=== PATIENT | male | born 1980 | race Two or more races ===

== ENCOUNTER 2017-03-16 22:34 | Emergency (ER) | payer OTHER ==
[~2017-03-16] VITALS: Ht 190.5 cm; Wt 77.1 kg
[~2017-03-16 22:34] MED LIST: /ACETCOD2T PO; /PREG50CA PO; BACL10TA2 PO; GABA-283 PO; MELO15TA4 PO; PERC4TAB PO; ROBA750T4 PO; TIZA4CAP PO; TIZA4CAP3 PO; TYLENOL PO; VALI5TAB PO; VOLT1GEL2 TD
[2017-03-16] MEDS ORDERED: CYCL10TA PO (22:58)
[2017-03-16] MEDS ORDERED: CELE-19 PO (22:58)
[2017-03-16] MEDS ORDERED: VICO5TAB16 PO (22:58)
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
[2017-03-16] MEDS ORDERED: MORPHINE 4 MG/ML 1ML SYRINGE IV PRN (23:30)
[2017-03-16] MEDS ORDERED: NS 1,000 ML IV ONE (23:30)
[2017-03-16] MEDS ORDERED: ONDANSETRON 4MG/2ML VIAL (J2405) IV ONE (23:30)
[2017-03-17] MEDS ORDERED: KETOROLAC 30 MG/ML VIAL (J1885) IV ONE (00:30)
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
--- NOTE | 2017-03-17 01:10 | REPUSA ---
CLINICAL HISTORY: Back pain. TECHNIQUE: Multiple axial images were obtained through the L1-L2, L2-L3, L3-L4, L4-L5 and L5-S1 inter spaces. Images were also reconstructed in coronal and sagittal planes. COMMENTS: There is no fracture visualized. The paraspinal soft tissues are unremarkable. There are no lytic or blastic lesions. Straightening of lumbar lordosis is seen, suggesting muscular spasm. There is evidence of multilevel disk disease, demonstrated by osteophytosis ad endplate sclerosis. Evaluation of individual levels reveals the following: At L3-L4, L4-L5 and L5-S1, broad-based disk protrusion in conjunction with hypertrophic facet disease results in moderate bilateral foraminal narrowing. Canal is mildly stenotic. At L1-L2, L2-L3 levels broad-based disk bulge, results in mild bilateral foraminal narrowing. Canal i s patent. IMPRESSION: 1. No fracture or spondylolisthesis. 2. Straightening of lumbar lordosis is seen, suggesting muscular spasm. 3. Spondylosis. Thank you for your kind referral of this patient.
[2017-03-17 02:15] VITALS: BP 126/82
== END 2017-03-17 03:18 | disposition home or self-care (01) ==
LOC: EDBD 22:34 → M ED 03-17 03:05
DX: S06.0X0A Concussion without loss of consciousness, initial encounter (principal); M62.838 Other muscle spasm; W22.8XXA Striking against or struck by other objects, initial encounter; Y92.016 Swimming-pool in single-family (private) house or garden as the place of occurrence of the external cause; Y93.15 Activity, underwater diving and snorkeling; Y99.9 Unspecified external cause status; M47.896 Other spondylosis, lumbar region; Z79.899 Other long term (current) drug therapy

== ENCOUNTER → 2017-04-05 | Outpatient (CLI) | payer OTHER ==
[~2017-04-05] MED LIST changes: +CELE-19 PO; +CYCL10TA PO; +VICO5TAB16 PO
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
--- NOTE | 2017-04-06 12:11 | REP ---
LEFT HAND SERIES, COMPLETE: 04/05/2017. Clinical history: Swelling, painful digit. Comparison left wrist: 09/27/2008. Findings: Four views are provided. Some narrowing and spurring at the PIP joint of the fifth digit with soft tissue swelling around those marginal osteophytes. This may be post-traumatic. There is no definite acute fracture. IP joint of the thumb shows minor degenerative change, other IP joints are intact. Carpal bones and articulations are intact. Distal radius and ulna unremarkable. Impression: 1. Marginal osteophytes at the PIP joint 5th digit which may be posttraumatic. There is swelling around this digit at that PIP joint. No acute fracture or destructive lesion. Signed by Rick Ferguson MD 04/06/2017 09:33 A
== END ==
LOC: M LRY 16:28
PROVIDERS: ATTEND Physician Assistant
DX: S99.912A Unspecified injury of left ankle, initial encounter (principal); M25.442 Effusion, left hand; X58.XXXA Exposure to other specified factors, initial encounter; Y92.9 Unspecified place or not applicable

== ENCOUNTER → 2018-11-04 | Outpatient (REF) | payer OTHER ==
[~2018-11-04] MED LIST changes: -CELE-19 PO; +CELE1CAP4 PO; -GABA-283 PO; +GABA-845 PO; +MELO15TA28 PO; -MELO15TA4 PO; -TIZA4CAP3 PO
== END ==
LOC: M LAB REF 17:55
PROVIDERS: ATTEND Orthopaedic Surgery
DX: M77.12 Lateral epicondylitis, left elbow (principal)

== ENCOUNTER → 2019-06-16 | Outpatient (CLI) | payer OTHER ==
[~2019-06-16] MED LIST changes: -/ACETCOD2T PO; -/PREG50CA PO; +ACET1TAB15 PO; +LYRI50CA PO; -PERC4TAB PO; +PERCOCET PO; -VICO5TAB16 PO; +VICO5TAB17 PO
--- NOTE | 2019-06-16 09:59 | REP ---
MRI RIGHT SHOULDER: TECHNIQUE: Axial T2 fat sat, gradient echo, sagittal oblique T2 fat sat, coronal oblique T1, T2 fat sat. There is ill-defined high signal on T2-weighted images involving the supraspinatus tendon diffusely compatible with tendinopathy/tendonitis. There may be some fraying along the bursal surface of the tendon. Otherwise no rotator cuff tear is seen. There are moderate hypertrophic degenerative changes of the acromioclavicular joint with a tiny amount of fluid in the joint. There is subchondral marrow edema in the acromion and distal clavicle. Mild increased signal on T2-weighted images involves the acromioclavicular ligament possibly indicating a sprain. The coracoclavicular is intact. Acromion is downward sloping and type II. The biceps tendon is within the bicipital groove with no tendosynovitis. There is no Hill-Sachs deformity. The deltoid muscle demonstrates no abnormal signal. Biceps labral complex is intact. No labral tear or paralabral cyst is seen. Subchondral cystic changes are seen in the humeral head. No joint effusion is seen. IMPRESSION: Moderate hypertrophic degenerative changes acromioclavicular joint with a tiny amount of fluid in the joint. There is marrow edema in the distal clavicle and in the acromion. This could be due to bone bruising or it could be secondary to arthritic changes at the acromioclavicular joint. There is ill-defined high signal on T2-weighted images involving the acromioclavicular ligament which may indicate a sprain. There is no malalignment or widening of the acromioclavicular joint. Mild supraspinatus tendinopathy/tendonitis with possible fraying along the bursal surface. Acromion is downward sloping and type II. Subchondral cystic changes humeral head. Electronically Signed by Dany Giraldo MD 06/16/2019 11:24 A
== END ==
LOC: M RAD 08:07
PROVIDERS: ATTEND Physician Assistant
DX: S43.101D Unspecified dislocation of right acromioclavicular joint, subsequent encounter (principal)

== ENCOUNTER → 2019-06-20 | Outpatient (CLI) | payer OTHER ==
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
== END ==
LOC: M LRY 16:27
PROVIDERS: ATTEND Physician Assistant
DX: S69.91XA Unspecified injury of right wrist, hand and finger(s), initial encounter (principal); X58.XXXA Exposure to other specified factors, initial encounter; Y92.89 Other specified places as the place of occurrence of the external cause

== ENCOUNTER 2021-07-06 22:36 | Inpatient (IN) | payer OTHER ==
[~2021-07-06] VITALS: Ht 182.9 cm; Wt 68.7 kg
[~2021-07-06 22:36] MED LIST changes: +CYCL-707 PO; -CYCL10TA PO; +GABA-283 PO; -GABA-845 PO
[2021-07-06] MEDS ORDERED: HALOPERIDOL 5MG/ML VIAL (J1630 PER 1) IM ONE (23:20)
[2021-07-06] MEDS ORDERED: NS 1,000 ML IV ONE (23:20)
[2021-07-06] MEDS ORDERED: LORazepam 2 MG/ML VIAL IM ONE (23:20)
[2021-07-06] MEDS ORDERED: diphenhydrAMINE 50MG/ML VIAL (J1200) IM ONE (23:20)
[2021-07-06 23:55] LABS: BASO # 0.1 10^3/uL (0.0-0.2); BASO % 0.7 % (0.0-1.0); EOS # 0.3 10^3/uL (0.0-0.5); EOS % 2.5 % (0.0-3.0); HEMATOCRIT 44.4 % (42.0-52.0); HEMOGLOBIN 15.3 g/dl (13.5-17.5); LYMPH # 3.6 10^3/uL (1.5-5.0); LYMPH % 32.6 % (24.0-44.0); MEAN CORPUSCULAR HGB CONC 34.5 g/dl (32.0-36.5); MEAN CORPUSCULAR VOLUME 95.7 fl (80.0-96.0); MONO # 0.6 10^3/uL (0.0-0.8); MONO % 5.3 % (2.0-8.0); NEUTROPHILS # 6.5 10^3/uL (1.5-8.5); NEUTROPHILS % 58.6 % (36.0-66.0); PLATELET COUNT, AUTOMATED 215 10^3/uL (150-450); RED BLOOD COUNT 4.64 10^6/uL (4.30-6.10)
[2021-07-07] VITALS (16 sets, daily range): BP systolic 106–148; BP diastolic 70–99; O2SAT 95
[2021-07-07 00:14] LABS: AMPHETAMINES LEVEL URINE NEGATIVE (NEGATIVE); BARBITURATES URINE NEGATIVE (NEGATIVE); BENZODIAZEPINES URINE NEGATIVE (NEGATIVE); CANNABINOIDS URINE NEGATIVE (NEGATIVE); COCAINE METABOLITE URINE NEGATIVE (NEGATIVE); METHADONE URINE NEGATIVE (NEGATIVE); OPIATES URINE NEGATIVE (NEGATIVE); PHENCYCLIDINE URINE NEGATIVE (NEGATIVE)
[2021-07-07 00:26] LABS: ACETAMINOPHEN LEVEL < 2.0 UG/ML (10.0-30.0); ALBUMIN 4.3 GM/DL (3.2-5.2); ALT/SGPT 19 U/L (12-78); BILIRUBIN,DIRECT < 0.1 MG/DL (0.0-0.2); BILIRUBIN,TOTAL 0.3 MG/DL (0.2-1.0); BLOOD UREA NITROGEN 10 MG/DL (7-18); CALCIUM LEVEL 9.1 MG/DL (8.5-10.1); CARBON DIOXIDE LEVEL 28 MEQ/L (21-32); CHLORIDE LEVEL 107 MEQ/L (98-107); CPK CREATINE PHOSPHOKINASE 300 U/L (39-308); CREATININE FOR GFR 1.01 MG/DL (0.70-1.30); ETHYL ALCOHOL (ETHANOL) 0.312 % (0.000-0.010); GLOMERULAR FILTRATION RATE > 60.0 (>60); GLUCOSE, FASTING 116 MG/DL (70-100); POTASSIUM SERUM 4.1 MEQ/L (3.5-5.1); SALICYLATE LEVEL 2.2 MG/DL (5.0-30.0); SODIUM LEVEL 142 MEQ/L (136-145); THYROID STIMULATING HORMONE 0.694 uIU/ML (0.358-3.740); TOTAL PROTEIN 7.4 GM/DL (6.4-8.2)
[2021-07-07] MEDS ORDERED: LORazepam 2 MG/ML VIAL IV STA (00:28)
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
[2021-07-07] MEDS ORDERED: ETOMIDATE INJ 20MG/10ML VIAL IV STA (02:59)
[2021-07-07] MEDS ORDERED: ROCURONIUM BROMIDE 50 MG/5 ML VIAL IV ONE (03:00)
[2021-07-07] MEDS ORDERED: AMLO1TAB24 PO (03:07)
[2021-07-07] MEDS ORDERED: propofoL 1,000 MG in IV 1 EA IV SCH (03:10)
--- NOTE | 2021-07-07 04:08 | REPVR ---
PROCEDURE INFORMATION: Exam: XR Chest Exam date and time: 07/07/2021 3:52 AM Age: 40 years old Clinical indication: Device placement; Ett placement (vent status); Additional info: Post intubation TECHNIQUE: Imaging protocol: XR of the chest. Views: 1 view. COMPARISON: CR Chest, 1 view 07/07/2021 12:00 AM FINDINGS: Tubes, catheters and devices: There is an enteric tube coursing below the diaphragm into the stomach, but the tip of the tube was not included in the field of the image. An endotracheal tube is seen overlying the trachea, and the tip terminates 5.4 cm above the db. Lungs: Unremarkable. No consolidation. No pulmonary edema. Pleural spaces: Unremarkable. No pleural effusion. No pneumothorax. Heart/Mediastinum: Unremarkable. No cardiomegaly. Bones/joints: Postoperative changes are noted from an excision of the distal end of the right clavicle and there is postoperative widening of the right acromioclavicular joint space. IMPRESSION: 1. Endotracheal tube in the trachea terminating 5.4 cm above the db. 2. Enteric tube seen in the stomach, but the tip of the tube was not included in the field of the image. Electronically signed by: Austin Saavedra On 07/07/2021 04:07:50 AM
[2021-07-07] MEDS: D5W/0.45% SODIUM CHLORIDE 1,000 ML IV SCH ×2 (04:20→10:02)
[2021-07-07] MEDS ORDERED: med rec comment (04:24)
[2021-07-07] MEDS ORDERED: HOME MED LIST COMPLETE! XX SCH (04:25)
[2021-07-07] MEDS: propofoL 1,000 MG in IV 1 EA IV SCH ×5 (04:35→21:18)
[2021-07-07 05:01] LABS: RSV AMPLIFICATION NEGATIVE (NEGATIVE)
[2021-07-07] MEDS: MIDAZOLAM INJ 2MG/2ML VIAL (J2250 PER 1MG) IV PRN ×10 (06:17→20:19)
[2021-07-07] MEDS: HEPARIN SOD (PORCINE) 5000UNITS/ML 1ML VIAL/SYRINGE SC SCH ×3 (06:23→21:19)
[2021-07-07 07:27] LABS: ALBUMIN 3.5 GM/DL (3.2-5.2); ALT/SGPT 16 U/L (12-78); BILIRUBIN,TOTAL 0.4 MG/DL (0.2-1.0); BLOOD UREA NITROGEN 9 MG/DL (7-18); CALCIUM LEVEL 8.1 MG/DL (8.5-10.1); CARBON DIOXIDE LEVEL 25 MEQ/L (21-32); CHLORIDE LEVEL 113 MEQ/L (98-107); CHOLESTEROL LEVEL 151 MG/DL (< 200); CPK CREATINE PHOSPHOKINASE 754 U/L (39-308); CREATININE FOR GFR 0.88 MG/DL (0.70-1.30); GLOMERULAR FILTRATION RATE > 60.0 (>60); GLUCOSE, FASTING 110 MG/DL (70-100); LDH LACTATE DEHYDROGENASE 187 U/L (87-241); PHOSPHORUS LEVEL 2.7 MG/DL (2.5-4.9); POTASSIUM SERUM 3.8 MEQ/L (3.5-5.1); SODIUM LEVEL 145 MEQ/L (136-145); TOTAL PROTEIN 5.8 GM/DL (6.4-8.2); TRIGLYCERIDES LEVEL 194 MG/DL (<150)
[2021-07-07] MEDS: IPRATROPIUM 0.5MG/ALBUTEROL 2.5MG INH SOL UD 3ML (DUONEB) NEB SCH ×5 (07:52→23:40)
[2021-07-07] MEDS: CHLORHEXIDINE GLUCONATE 0.12 % 15ML UDC (PERIDEX ORAL RINSE) MT SCH ×2 (08:11→20:10)
[2021-07-07] MEDS: PANTOPRAZOLE 40MG VIAL (C9113 PER 1) IV SCH (08:11)
[2021-07-07 09:12] LABS: ABG BASE EXCESS 0.4 (-2.0-2.0); ABG HCO3 24.9 MEQ/L (22.0-26.0); ABG O2 SATURATION 98.9 % (95.0-99.0); ABG PARTIAL PRESSURE CO2 39.6 mmHg (35.0-45.0); ABG PARTIAL PRESSURE O2 137.1 mmHg (75.0-100.0); ABG STANDARD HCO3 24.9 MEQ/L (22.0-26.0); ABG TOTAL CO2 26.1 MEQ/L (22.0-29.0); ABG pH (ARTERIAL) 7.416 UNITS (7.350-7.450)
[2021-07-07] MEDS: KCL 20MEQ IN D5/0.45NS 1000ML 1,000 ML IV SCH ×2 (10:36→18:46)
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
[2021-07-07] MEDS: MORPHINE 2 MG/ML 1ML VIAL (J2270) IV PRN ×2 (17:57→21:26)
[2021-07-08] VITALS (15 sets, daily range): BP systolic 111–155; BP diastolic 69–99
[2021-07-08] MEDS: MIDAZOLAM INJ 2MG/2ML VIAL (J2250 PER 1MG) IV PRN ×3 (00:12→07:10)
[2021-07-08] MEDS: propofoL 1,000 MG in IV 1 EA IV SCH ×4 (00:12→07:55)
[2021-07-08] MEDS: KCL 20MEQ IN D5/0.45NS 1000ML 1,000 ML IV SCH ×2 (02:50→10:30)
[2021-07-08] MEDS: IPRATROPIUM 0.5MG/ALBUTEROL 2.5MG INH SOL UD 3ML (DUONEB) NEB SCH ×5 (04:05→20:22)
[2021-07-08] MEDS: HEPARIN SOD (PORCINE) 5000UNITS/ML 1ML VIAL/SYRINGE SC SCH ×3 (05:07→21:04)
[2021-07-08 05:27] LABS: ALBUMIN 3.2 GM/DL (3.2-5.2); ALT/SGPT 16 U/L (12-78); BILIRUBIN,TOTAL 0.4 MG/DL (0.2-1.0); BLOOD UREA NITROGEN 7 MG/DL (7-18); CALCIUM LEVEL 8.1 MG/DL (8.5-10.1); CARBON DIOXIDE LEVEL 30 MEQ/L (21-32); CHLORIDE LEVEL 113 MEQ/L (98-107); CHOLESTEROL LEVEL 148 MG/DL (< 200); CPK CREATINE PHOSPHOKINASE 778 U/L (39-308); CREATININE FOR GFR 0.87 MG/DL (0.70-1.30); GLOMERULAR FILTRATION RATE > 60.0 (>60); GLUCOSE, FASTING 110 MG/DL (70-100); LDH LACTATE DEHYDROGENASE 211 U/L (87-241); PHOSPHORUS LEVEL 3.4 MG/DL (2.5-4.9); POTASSIUM SERUM 4.2 MEQ/L (3.5-5.1); SODIUM LEVEL 146 MEQ/L (136-145); TOTAL PROTEIN 5.5 GM/DL (6.4-8.2); TRIGLYCERIDES LEVEL 76 MG/DL (<150)
[2021-07-08 05:45] LABS: ABG BASE EXCESS 0.4 (-2.0-2.0); ABG HCO3 26.7 MEQ/L (22.0-26.0); ABG O2 SATURATION 99.1 % (95.0-99.0); ABG PARTIAL PRESSURE CO2 49.5 mmHg (35.0-45.0); ABG PARTIAL PRESSURE O2 170.3 mmHg (75.0-100.0); ABG STANDARD HCO3 24.9 MEQ/L (22.0-26.0); ABG TOTAL CO2 28.2 MEQ/L (22.0-29.0); ABG pH (ARTERIAL) 7.349 UNITS (7.350-7.450)
--- NOTE | 2021-07-08 05:49 | ECGEPIP ---
[facility] - ED Test Date: 2021-07-06 Pat Name: KIERRA STEWARD Department: Room: [place] [address] Gender: Male [employer] T[employer] Head: MANFRED : 1980 Requested By: PARESH [place] Order Number: [id number] Reading MD: Filiberto Barriga Measurements Intervals Venus Rate: 98 P: 63 NV: 154 QRS: 54 QRSD: 92 T: 55 QT: 356 QTc: 454 Interpretive Statements Normal sinus rhythm POOR R WAVE PROGRESSION NSTTW ABNORMALITY(S) NO PRIORS FOR COMPARISON Electronically Signed on 07-08-2021 5:49:25 EDT by Filiberto Barriga
--- NOTE | 2021-07-08 08:07 | REP ---
INDICATION: Resp failure COMPARISON: 07/07/2021 TECHNIQUE: Portable AP view of the chest FINDINGS: Endotracheal tube and nasogastric tube in stable satisfactory position. The mediastinum and cardiac silhouette are stable and within normal limits for portable technique. The lung flaherty are clear without acute consolidation, effusion, or pneumothorax. Skeletal structures are intact. IMPRESSION: No focal consolidation, effusion, or pneumothorax appreciated. <Electronically signed by Tavo Valderrama > 07/08/21 0858
[2021-07-08] MEDS: CHLORHEXIDINE GLUCONATE 0.12 % 15ML UDC (PERIDEX ORAL RINSE) MT SCH ×2 (08:54→20:16)
[2021-07-08] MEDS: PANTOPRAZOLE 40MG VIAL (C9113 PER 1) IV SCH (08:54)
--- NOTE | 2021-07-08 09:40 | CCN ---
CRITICAL CARE NOTE DATE: 07/08/2021 START TIME: 814 STOP TIME: 844 SUBJECTIVE: I again attended Kyle Bullard here in the Intensive Care Unit. Patient has been examined. Chart reviewed. I spoke at length with the nurse at the bedside. He is still on significant amounts of propofol, and this will be discontinued this morning. T-max overnight 98.3, blood pressure 110 to 150s, heart rate 50 to 70s with a sinus mechanism, respiratory rate 14 and occasionally does overbreathe the ventilator. Ins and outs midnight 3,358 mL in with 1,625 mL out. White blood cell count 11.0, hemoglobin 15.3, platelet count 215,000, 58% segs, no bands. Sodium 146, potassium 4.2, chloride 113, CO2 30, BUN 7, creatinine 0.87, glucose 110. CK mildly elevated at 778. Albumin acceptable at 3.2. Blood gas done this morning on an SIMV rate of 14, tidal volume 450, PEEP of 5, FiO2 of 30% has a pH of 7.349, pCO2 of 49.5, and pO2 of 170. Chest x-ray done this morning shows lines and tubes in good position. No acute findings. OBJECTIVE: GENERAL: On exam, he is sedate. HEENT: Pupils reactive. Sclera clear. Trachea is in the midline. CHEST: Clear to both auscultation and percussion. Expansion symmetric. No significant focal or adventitious breath sounds are identified. Tactile fremitus palpable throughout. CARDIAC: Regular with no gallop. Peripheral pulses palpable without edema. ABDOMEN: Soft, nontender with active bowel sounds. No convincing organomegaly or masses. EXTREMITIES: No cyanosis or clubbing. He does move all extremities when sedation is lightened. PSYCHIATRIC: Psychiatric exam currently shows him to be sedate. MOST PRESSING PROBLEMS REQUIRING MY PRESENCE AT THE BEDSIDE: 1. Respiratory failure secondary to alcohol intoxication. 2. Alcohol intoxication. ASSESSMENT/PLAN: At this point, we will discontinue his sedation. My hope is that we will be able to extubate him this morning. He has had some minimal electrolyte abnormalities, and I believe these will self correct when he is able to be extubated and eat. For now, we will continue ulcer and DVT prophylaxis. He remains on maintenance fluids. Will proceed as outlined above. Currently, there is no role for antimicrobials. Will proceed as outlined above. I left the bedside at 0845 hours. Thirty minutes of critical care time at the bedside not including procedures.
[2021-07-08] MEDS ORDERED: NORCO, ANEXSIA 5/325MG TABLET (HYDROcodone/ACETAMINOPHEN) PO PRN (10:50)
[2021-07-08] MEDS ORDERED: CHLORASEPTIC SPRAY MT PRN (10:50)
[2021-07-08] MEDS ORDERED: KETOROLAC 30 MG/ML 1ML VIAL IV PRN (10:50)
[2021-07-08] MEDS ORDERED: ACETAMINOPHEN TAB 650MG DOSE (2X325MG) PO PRN (10:50)
[2021-07-08] MEDS ORDERED: amLODIPine 5 MG TAB PO ONE (11:10)
[2021-07-08] MEDS: amLODIPine 5 MG TAB PO SCH (11:41)
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
[2021-07-08] MEDS: THIAMINE 100 MG TAB PO SCH (16:10)
[2021-07-08] MEDS: MULTIVITAMINS/MINERALS THERAP 1 TAB PO SCH (16:11)
[2021-07-08] MEDS: FOLIC ACID 1 MG TAB PO SCH (16:11)
[2021-07-09] MEDS: IPRATROPIUM 0.5MG/ALBUTEROL 2.5MG INH SOL UD 3ML (DUONEB) NEB SCH ×4 (03:02→12:00)
[2021-07-09] MEDS: HEPARIN SOD (PORCINE) 5000UNITS/ML 1ML VIAL/SYRINGE SC SCH (05:19)
[2021-07-09 06:00] VITALS: BP 126/81
[2021-07-09 07:13] LABS: ALBUMIN 3.4 GM/DL (3.2-5.2); ALT/SGPT 19 U/L (12-78); BILIRUBIN,TOTAL 1.1 MG/DL (0.2-1.0); BLOOD UREA NITROGEN 11 MG/DL (7-18); CALCIUM LEVEL 8.7 MG/DL (8.5-10.1); CARBON DIOXIDE LEVEL 28 MEQ/L (21-32); CHLORIDE LEVEL 110 MEQ/L (98-107); CHOLESTEROL LEVEL 153 MG/DL (< 200); CPK CREATINE PHOSPHOKINASE 1081 U/L (39-308); CREATININE FOR GFR 0.88 MG/DL (0.70-1.30); GLOMERULAR FILTRATION RATE > 60.0 (>60); GLUCOSE, FASTING 81 MG/DL (70-100); LDH LACTATE DEHYDROGENASE 213 U/L (87-241); PHOSPHORUS LEVEL 3.3 MG/DL (2.5-4.9); POTASSIUM SERUM 4.4 MEQ/L (3.5-5.1); SODIUM LEVEL 143 MEQ/L (136-145); TOTAL PROTEIN 5.7 GM/DL (6.4-8.2); TRIGLYCERIDES LEVEL 66 MG/DL (<150)
--- NOTE | 2021-07-09 07:51 | REP ---
INDICATION: Resp failure. COMPARISON: Comparison portable chest x-ray July 08, 2021. TECHNIQUE: Portable upright AP chest radiograph. FINDINGS: The lungs are well inflated and free of infiltrate. Pleural angles are sharp. Heart size is normal. Pulmonary vasculature is not increased. Nasogastric and endotracheal tubes have been removed in the interval since the prior study. IMPRESSION: No active disease. <Electronically signed by Jeromy Miranda > 07/09/21 0781
[2021-07-09] MEDS ORDERED: VITMTA PO (08:14)
[2021-07-09] MEDS ORDERED: FOLI1TAB11 PO (08:14)
[2021-07-09] MEDS ORDERED: THIA100TA PO (08:14)
[2021-07-09] MEDS ORDERED: MAPA500C PO (08:14)
[2021-07-09] MEDS: PANTOPRAZOLE 40MG VIAL (C9113 PER 1) IV SCH (08:54)
[2021-07-09] MEDS: FOLIC ACID 1 MG TAB PO SCH (08:54)
[2021-07-09] MEDS: MULTIVITAMINS/MINERALS THERAP 1 TAB PO SCH (08:54)
[2021-07-09] MEDS: THIAMINE 100 MG TAB PO SCH (08:54)
[2021-07-09 08:55] VITALS: BP 126/81
[2021-07-09] MEDS: amLODIPine 5 MG TAB PO SCH (08:55)
[2021-07-09] MEDS: CHLORHEXIDINE GLUCONATE 0.12 % 15ML UDC (PERIDEX ORAL RINSE) MT SCH (09:00)
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
== END 2021-07-09 14:45 | disposition home or self-care (01) | DRG 133 ==
LOC: M ED 22:36 → M ED INP 07-07 04:31 → ENRESERV 07-07 05:22 → M ICU 07-07 06:10 → M MSPAV 07-08 17:37
PROVIDERS: ADMIT Internal Medicine Pulmonary Disease; ATTEND General Practice
PROC: 5A1945Z Respiratory Ventilation, 24-96 Consecutive Hours (ICD-10-PCS; principal; 2021-07-07)
DX: J96.90 Respiratory failure, unspecified, unspecified whether with hypoxia or hypercapnia (principal); G89.29 Other chronic pain; F10.129 Alcohol abuse with intoxication, unspecified; I10 Essential (primary) hypertension

== ENCOUNTER 2022-04-10 22:09 | Emergency (ER) | payer OTHER, MEDICAID ==
[~2022-04-10] VITALS: Ht 190.5 cm; Wt 71.9 kg
[~2022-04-10 22:09] MED LIST changes: +AMLO1TAB24 PO; +FOLI1TAB11 PO; +MAPA500C PO; +THIA100TA PO; +VITMTA PO; +med rec comment
[2022-04-10] MEDS ORDERED: NS 1,000 ML IV SCH (22:20)
[2022-04-10] MEDS ORDERED: MORPHINE 4 MG/ML 1ML VIAL/SYRINGE IV ONE (22:20)
[2022-04-10] MEDS ORDERED: ISOVUE-370 76% 100ML VIAL As Ordered ONE (22:24)
[2022-04-10 22:34] LABS: BASO # 0.1 10^3/uL (0.0-0.2); EOS # 0.2 10^3/uL (0.0-0.5); EOS % 2.4 % (0.0-3.0); HEMATOCRIT 39.6 % (42.0-52.0); HEMOGLOBIN 13.8 g/dl (13.5-17.5); LYMPH # 3.4 10^3/uL (1.5-5.0); MEAN CORPUSCULAR HEMOGLOBIN 34.8 pg (27.0-33.0); MEAN CORPUSCULAR HGB CONC 34.8 g/dl (32.0-36.5); MEAN CORPUSCULAR VOLUME 99.7 fl (80.0-96.0); MONO # 0.6 10^3/uL (0.0-0.8); MONO % 7.6 % (2.0-8.0); NEUTROPHILS # 3.1 10^3/uL (1.5-8.5); NEUTROPHILS % 42.5 % (36.0-66.0); PLATELET COUNT, AUTOMATED 153 10^3/uL (150-450); RED BLOOD COUNT 3.97 10^6/uL (4.30-6.10); WHITE BLOOD COUNT 7.4 10^3/uL (4.0-10.0)
[2022-04-10 22:48] LABS: INR 0.89; PROTHROMBIN TIME 12.4 SECONDS (12.7-14.5)
[2022-04-10 22:49] LABS: PARTIAL THROMBOPLASTIN TIME 26.5 SECONDS (25.9-37.0)
[2022-04-10 22:57] LABS: ALBUMIN 4.3 GM/DL (3.2-5.2); BILIRUBIN,DIRECT 0.2 MG/DL (0.0-0.2); BILIRUBIN,TOTAL 0.6 MG/DL (0.2-1.0); ETHYL ALCOHOL (ETHANOL) 0.297 % (0.000-0.010); TOTAL PROTEIN 6.9 GM/DL (6.4-8.2)
[2022-04-10 23:02] LABS: CK-MB VALUE MASS 6.3 NG/ML (<3.6); MB/CK RELATIVE INDEX 2.01 (< OR =4)
[2022-04-11] MEDS ORDERED: MORPHINE 4 MG/ML 1ML VIAL/SYRINGE IV ONE (00:10)
[2022-04-11 00:32] LABS: APPEARANCE, URINE CLEAR (CLEAR); BACTERIA, URINE AUTO NEGATIVE (NEGATIVE); BILIRUBIN, URINE AUTO NEGATIVE (NEGATIVE); BLOOD, URINE BLOOD 2+ (NEGATIVE); COLOR, URINE STRAW (YELLOW); GLUCOSE, URINE (UA) AUTO NEGATIVE (NEGATIVE); KETONE, URINE AUTO NEGATIVE (NEGATIVE); LEUKOCYTE ESTERASE, URINE AUTO NEGATIVE (NEGATIVE); NITRITE, URINE AUTO NEGATIVE (NEGATIVE); PROTEIN, URINE AUTO NEGATIVE (NEGATIVE); RBC, URINE AUTO 0 /HPF (0-3); SPECIFIC GRAVITY URINE AUTO 1.013 (1.002-1.035); SQUAMOUS EPITHELIAL CELL UR AU 0 /HPF (0-6); UROBILINOGEN, URINE AUTO 0.2 mg/dL (0.0-2.0); WBC, URINE AUTO 1 /HPF (0-3)
[2022-04-11 00:39] LABS: AMPHETAMINES LEVEL URINE NEGATIVE (NEGATIVE); BARBITURATES URINE NEGATIVE (NEGATIVE); BENZODIAZEPINES URINE NEGATIVE (NEGATIVE); CANNABINOIDS URINE NEGATIVE (NEGATIVE); COCAINE METABOLITE URINE NEGATIVE (NEGATIVE); METHADONE URINE NEGATIVE (NEGATIVE); OPIATES URINE POSITIVE (NEGATIVE); PHENCYCLIDINE URINE NEGATIVE (NEGATIVE)
[2022-04-11 01:08] LABS: MB/CK RELATIVE INDEX 1.85 (< OR =4)
[2022-04-11 01:50] VITALS: BP 134/87
[2022-04-11 01:59] LABS: RSV AMPLIFICATION NEGATIVE (NEGATIVE)
== END 2022-04-11 01:51 | disposition short-term general hospital (02) ==
LOC: M ED 22:09
DX: S29.9XXA Unspecified injury of thorax, initial encounter (principal); T79.7XXA Traumatic subcutaneous emphysema, initial encounter; J93.9 Pneumothorax, unspecified; I10 Essential (primary) hypertension; V49.40XA Driver injured in collision with unspecified motor vehicles in traffic accident, initial encounter; Z91.030 Bee allergy status; Z79.899 Other long term (current) drug therapy; Y92.410 Unspecified street and highway as the place of occurrence of the external cause; Y93.9 Activity, unspecified; Y99.9 Unspecified external cause status
CPT/HCPCS: 70450; 71045; 71260; 72125; 73110; 73610; 74177; 80047; 80076; 80307; 81001; 82077; 82150; 82550; 82553; 83605; 83690; 84484; 85025; 85610; 85730; 86850; 86900; 86901; 87631; 93005; 93041; 94760; 96361; 96372; 96374; 96376; 99285; J2270; Q9967

== ENCOUNTER 2022-04-13 02:01 | Emergency (ER) | payer OTHER, MEDICAID ==
[~2022-04-13] VITALS: Ht 188 cm; Wt 69.5 kg
[2022-04-13 02:05] VITALS: BP 131/82
[2022-04-13] MEDS ORDERED: DOCU100C16 (02:11)
[2022-04-13] MEDS ORDERED: OXYC-517 (02:11)
== END 2022-04-13 03:06 | disposition left against medical advice (07) ==
LOC: M ED 02:01
DX: Z53.21 Procedure and treatment not carried out due to patient leaving prior to being seen by health care provider (principal)

== ENCOUNTER 2024-03-27 16:32 | Emergency (ER) | payer MEDICAID, OTHER, SELFPAY ==
[~2024-03-27] VITALS: Ht 190.5 cm; Wt 69.2 kg
[~2024-03-27 16:32] MED LIST changes: +DOCU100C16; -GABA-283 PO; +GABA-284 PO; +OXYC-517
[2024-03-27 16:33] VITALS: BP 128/87; TEMP 97.8; O2SAT 98
[2024-03-27] MEDS: LIDOCAINE 4% CREAM 5GM (LMX4) TOP ONE (18:09)
[2024-03-27] MEDS: KETOROLAC 60MG 2ML VIAL IM ONE (19:24)
[2024-03-28] MEDS ORDERED: CEPH500C PO (16:28)
== END 2024-03-27 19:53 | disposition left against medical advice (07) ==
LOC: M ED 16:32
DX: M25.521 Pain in right elbow (principal); I10 Essential (primary) hypertension; Z91.030 Bee allergy status; Z79.2 Long term (current) use of antibiotics; Z53.9 Procedure and treatment not carried out, unspecified reason
CPT/HCPCS: 73080; 93971; 96372; 99282; J1885

== ENCOUNTER 2024-03-28 13:13 | Emergency (ER) | payer MEDICAID, OTHER, SELFPAY ==
[~2024-03-28] VITALS: Ht 190.5 cm; Wt 70.0 kg
[2024-03-28 15:29] LABS: BASO # 0.1 10^3/uL (0.0-0.2); BASO % 0.8 % (0.0-1.0); EOS # 0.1 10^3/uL (0.0-0.5); EOS % 0.8 % (0.0-3.0); HEMOGLOBIN 13.9 g/dl (13.5-17.5); LYMPH # 1.2 10^3/uL (1.5-5.0); LYMPH % 12.5 % (24.0-44.0); MEAN CORPUSCULAR HEMOGLOBIN 35.5 pg (27.0-33.0); MEAN CORPUSCULAR HGB CONC 34.8 g/dl (32.0-36.5); MONO # 0.9 10^3/uL (0.0-0.8); MONO % 9.3 % (2.0-8.0); NEUTROPHILS # 7.1 10^3/uL (1.5-8.5); NEUTROPHILS % 76.3 % (36.0-66.0); PLATELET COUNT, AUTOMATED 163 10^3/uL (150-450); RED BLOOD COUNT 3.92 10^6/uL (4.30-6.10); WHITE BLOOD COUNT 9.3 10^3/uL (4.0-10.0)
[2024-03-28] MEDS ORDERED: IBUPROFEN 400MG TAB PO ONE (15:35)
[2024-03-28 15:55] LABS: BLOOD UREA NITROGEN 17 MG/DL (9-23); CALCIUM LEVEL 9.6 MG/DL (8.5-10.1); CARBON DIOXIDE LEVEL 27 MMOL/L (20-31); CHLORIDE LEVEL 107 MMOL/L (98-107); CREATININE FOR GFR 0.97 MG/DL (0.70-1.30); GLOMERULAR FILTRATION RATE > 60.0 (>60); GLUCOSE, FASTING 88 MG/DL (60-100); POTASSIUM SERUM 4.4 MMOL/L (3.5-5.1); SODIUM LEVEL 142 MMOL/L (136-145)
[2024-03-28 16:03] LABS: ERYTHROCYTE SEDIMENTATION RATE 20 mm/hr (0-15)
[2024-03-28] MEDS ORDERED: CEPH500C PO (16:28)
[2024-03-28 16:37] VITALS: BP 146/86; TEMP 99.3; O2SAT 100
== END 2024-03-28 16:48 | disposition home or self-care (01) ==
LOC: M ED 13:13
DX: L03.113 Cellulitis of right upper limb (principal); J45.909 Unspecified asthma, uncomplicated; I10 Essential (primary) hypertension; F10.10 Alcohol abuse, uncomplicated; F17.200 Nicotine dependence, unspecified, uncomplicated; Z91.030 Bee allergy status; Z79.2 Long term (current) use of antibiotics

== ENCOUNTER 2024-05-28 13:16 | Emergency (ER) | payer OTHER, SELFPAY ==
[~2024-05-28] VITALS: Ht 190.5 cm; Wt 74.1 kg
[~2024-05-28 13:16] MED LIST changes: +CEPH500C PO
[2024-05-28] MEDS: methylPREDNISolone 125MG 2ML VIAL IV ONE (13:33)
[2024-05-28] MEDS: diphenhydrAMINE 50MG/ML VIAL IV STA (13:33)
[2024-05-28] MEDS: FAMOTIDINE 20MG/2ML VIAL IVP ONE (13:34)
[2024-05-28 13:37] LABS: BASO # 0.1 10^3/uL (0.0-0.2); BASO % 1.7 % (0.0-1.0); EOS # 0.2 10^3/uL (0.0-0.5); EOS % 2.5 % (0.0-3.0); HEMATOCRIT 39.1 % (42.0-52.0); LYMPH # 4.1 10^3/uL (1.5-5.0); LYMPH % 63.9 % (24.0-44.0); MEAN CORPUSCULAR HEMOGLOBIN 34.6 pg (27.0-33.0); MEAN CORPUSCULAR HGB CONC 35.8 g/dl (32.0-36.5); MEAN CORPUSCULAR VOLUME 96.5 fl (80.0-96.0); MONO # 0.5 10^3/uL (0.0-0.8); MONO % 8.5 % (2.0-8.0); NEUTROPHILS # 1.5 10^3/uL (1.5-8.5); NEUTROPHILS % 23.2 % (36.0-66.0); PLATELET COUNT, AUTOMATED 185 10^3/uL (150-450); RED BLOOD COUNT 4.05 10^6/uL (4.30-6.10); WHITE BLOOD COUNT 6.4 10^3/uL (4.0-10.0)
[2024-05-28 14:12] LABS: BLOOD UREA NITROGEN 10 MG/DL (9-23); CALCIUM LEVEL 9.5 MG/DL (8.5-10.1); CARBON DIOXIDE LEVEL 19 MMOL/L (20-31); CHLORIDE LEVEL 104 MMOL/L (98-107); CK-MB VALUE MASS < 1.0 NG/ML (<3.6); CPK CREATINE PHOSPHOKINASE 109 U/L (46-171); GLOMERULAR FILTRATION RATE > 60.0 (>60); GLUCOSE, FASTING 97 MG/DL (60-100); MB/CK RELATIVE INDEX 0.91 (< OR =4); POTASSIUM SERUM 4.3 MMOL/L (3.5-5.1); SODIUM LEVEL 136 MMOL/L (136-145)
[2024-05-28 15:15] LABS: CK-MB VALUE MASS < 1.0 NG/ML (<3.6)
[2024-05-28 15:19] LABS: CPK CREATINE PHOSPHOKINASE 99 U/L (46-171); MB/CK RELATIVE INDEX 1.01 (< OR =4)
[2024-05-28 17:19] LABS: CK-MB VALUE MASS < 1.0 NG/ML (<3.6)
[2024-05-28 17:20] LABS: CPK CREATINE PHOSPHOKINASE 99 U/L (46-171); MB/CK RELATIVE INDEX 1.01 (< OR =4)
[2024-05-28] MEDS ORDERED: EPIP0.3I2 IM (18:26)
[2024-05-28 18:30] VITALS: BP 118/86; TEMP 97.5; O2SAT 96
== END 2024-05-28 18:35 | disposition home or self-care (01) ==
LOC: M ED 13:16
DX: T78.40XA Allergy, unspecified, initial encounter (principal); R00.1 Bradycardia, unspecified; M54.50 Low back pain, unspecified; I10 Essential (primary) hypertension; Z91.030 Bee allergy status; Z79.899 Other long term (current) drug therapy
CPT/HCPCS: 71045; 80048; 82550; 82553; 84484; 85025; 93005; 93041; 94760; 96374; 96375; 99285; J1200; J2919; S0028